=== PATIENT | male | born 2000 | race Hispanic/Latino ===

== ENCOUNTER 2020-06-05 14:45 | Outpatient (CLI) | payer OTHER ==
--- NOTE | 2020-06-05 15:07 | RAD ---
EXAM: 2 views of the right knee HISTORY: Right knee pain COMPARISON: None FINDINGS: No knee effusion is seen. There is no evidence of acute fracture or dislocation. No degener ative changes are seen. IMPRESSION: No evidence of acute osseous abnormality.
== END 2020-06-05 14:46 | disposition home or self-care (01) ==
LOC: NAV RAD 14:45
PROVIDERS: ATTEND Nurse Practitioner Family
DX: M25.561 Pain in right knee (principal)

== ENCOUNTER 2022-10-05 21:28 | Emergency (ER) | payer SELFPAY ==
[2022-10-05] MEDS ORDERED: Azithromycin 250 MG TAB ONE (22:33)
== END 2022-10-05 22:45 | disposition home or self-care (01) ==
LOC: NAV ERS 21:28
DX: H66.92 Otitis media, unspecified, left ear (principal)
CPT/HCPCS: 99282